=== PATIENT | female | born 1950 | race Hispanic/Latino ===

== ENCOUNTER 2018-01-21 10:48 | Emergency (ER) | payer MEDICARE ==
[~2018-01-21] VITALS: Ht 154.9 cm; Wt 72.6 kg
[2018-01-21 11:40] LABS: BASOPHILS # (AUTO) 0.1 (0.0-0.1); BASOPHILS % 0.6 % (0.0-1.0); EOSINOPHILS # (AUTO) 0.1 (0.0-0.4); EOSINOPHILS % 0.7 % (0.0-6.0); HEMATOCRIT 44.6 % (34.2-44.1); HEMOGLOBIN 14.9 g/dL (12.0-16.0); LYMPHOCYTES # (AUTO) 1.7 (1.0-3.2); LYMPHOCYTES % 17.5 % (18.0-39.1); MEAN CORPUSCULAR HEMOGLOBIN 27.6 pg (28-32); MEAN CORPUSCULAR HGB CONC 33.4 g/dL (31-35); MEAN CORPUSCULAR VOLUME 82.6 fL (81-99); MONOCYTES # (AUTO) 0.9 (0.2-0.8); NEUTROPHILS % 71.8 % (38.7-80.0); PLATELET COUNT 169 x10e3/uL (140-360); RED CELL DISTRIBUTION WIDTH 13.2 % (11.7-14.4)
[2018-01-21 11:50] LABS: INR 1.16; PROTHROMBIN TIME 13.9 seconds (11.9-14.5)
[2018-01-21 11:51] LABS: PARTIAL THROMBOPLASTIN TIME 33.2 seconds (23.8-35.5)
[2018-01-21 12:01] LABS: ALANINE AMINOTRANSFERASE 28 IU/L (0-55); ALBUMIN 4.2 g/dL (3.5-5.0); ALKALINE PHOSPHATASE 196 IU/L (40-150); AMYLASE 47 U/L (25-125); ANION GAP 16.4 mmol/L (8-16); BILIRUBIN,DIRECT 0.4 mg/dL (0.0-0.5); BLOOD UREA NITROGEN 13 mg/dL (7-26); BUN/CREATININE RATIO 17 (6-25); CALCIUM 10.8 mg/dL (8.4-10.2); CARBON DIOXIDE 28 mmol/L (22-29); CHLORIDE 98 mmol/L (98-107); CREATININE, SERUM 0.77 mg/dL (0.57-1.11); EST GLOMERULAR FILTRATION RATE > 60 ML/MIN (60-); GLUCOSE 108 mg/dL (74-118); LIPASE 20 U/L (8-78); POTASSIUM 3.4 mmol/L (3.5-5.1); SODIUM 139 mmol/L (136-145)
--- NOTE | 2018-01-21 12:29 | Diagnostic Imaging Report ---
PROCEDURE:US LIVER COMPARISON:None. INDICATIONS:Not provided. FINDINGS: LIVER: Size:18.8 cm in the right midclavicular line, enlarged Appearance:Normal echogenicity, smooth contour Mass:Multiple hypocholic lesions in both lobes, largest measures 6.8 x 4.3 x 3.3 cm in the right hepatic lobe. One of the left hepatic lesions has a targetoid appearance. GALLBLADDER: Stones/Sludge:None Appearance:No wall thickening or hydrops. Trace pericholecystic fluid. Sonographic Awad's Sign:Negative Lesions: Hyperechoic 2.1 x 1.1 x 0.7 cm non-mobile lesion without posterior acoustic shadowing and a few foci of color Doppler signal. BILE DUCTS: Intrahepatic Ducts:No dilation Extrahepatic Ducts:Common bile duct measures 0.3 cm, no dilatation. PANCREAS: Visualized portions of the neck and proximal body are normal. RIGHT KIDNEY: Size:12.7 cm in length Echogenicity:Normal Collecting System:No hydronephrosis Stone:None Cyst/Mass:None VESSELS: Aorta:Visualized portions are normal. Inferior Vena Cava:Visualized portions are normal. Main Portal Vein:1.1 cm, normal size with hepatopetal flow. FREE FLUID: No ascites or pleural effusions. CONCLUSION: 1. Multiple hepatic masses measuring up to 6.8 cm which are concerning for metastatic disease but indeterminate. 2. Gallbladder 2.1 cm mass/polyp. Dictated by: Delbert Mcclain M.D. on 01/21/2018 at 12:28 Electronically approved by: Delbert Mcclain M.D. on 01/21/2018 at 12:28
[2018-01-21 13:33] VITALS: BP 124/71
== END 2018-01-21 14:20 | disposition home or self-care (01) ==
LOC: ER 10:48 → EDBD 10:48 → ER 14:20
DX: R10.11 Right upper quadrant pain (principal); C22.9 Malignant neoplasm of liver, not specified as primary or secondary
CPT/HCPCS: 36415; 76705; 80053; 80076; 82150; 83690; 85025; 85610; 85730; 99284